=== PATIENT | female | born 1980 | race Asian ===

== ENCOUNTER → 2019-05-23 | Outpatient (CLI) | payer OTHER | LOC: DIA.ED 11:16 | DX: O24.419 Gestational diabetes mellitus in pregnancy, unspecified control (principal); Z3A.23 23 weeks gestation of pregnancy | CPT/HCPCS: G0108 ==

== ENCOUNTER → 2019-06-02 | Outpatient (CLI) | payer OTHER | LOC: DIA.ED 10:20 | DX: O24.419 Gestational diabetes mellitus in pregnancy, unspecified control (principal); Z3A.25 25 weeks gestation of pregnancy | CPT/HCPCS: G0108 ==

== ENCOUNTER → 2019-06-08 | Outpatient (CLI) | payer OTHER | LOC: DIA.ED 08:35 | DX: O24.419 Gestational diabetes mellitus in pregnancy, unspecified control (principal); Z3A.28 28 weeks gestation of pregnancy | CPT/HCPCS: G0108 ==

== ENCOUNTER 2019-07-22 09:24 | Inpatient (IN) | payer OTHER ==
[2019-07-23] VITALS (17 sets, daily range): BP systolic 102–136; BP diastolic 55–99; PULSE 53–86; TEMP 97.8–98.6
--- NOTE | 2019-07-23 07:10 | NUR ---
Pt arrives to unit ambulatory with spouse. Pt oriented to room, changed into gown. EFM explained and placed, pt denies contractions or leaking of fluid, reports good movement. Vitals taken, assessment done, consents signed. IV started in left forearm. Plan of care discussed, pt denies questions at this time.
[2019-07-23] MEDS ORDERED: PRENATAL TABLET PO (07:54)
[2019-07-23] MEDS ORDERED: NATURAL IRON65 MG (07:55)
[2019-07-23] MEDS ORDERED: BASAGLAR K100 UNIT/1 SQ (07:56)
[2019-07-23 08:09] LABS: BASO % 0.4 % (0.0-2.0); EOS # 0.1 (0.0-0.7); EOS % 1.1 % (0-4.0); GRAN # 4.6 (1.4-6.5); GRAN % 57.9 % (42.2-75.2); HEMOGLOBIN 11.3 g/dl (12.5-16.0); LYMPH # 2.7 (1.2-3.4); LYMPH % 34.2 % (20.0-51.0); MEAN CELL VOLUME 83 fl (80.0-100.0); MEAN CORPUSCULAR HEMOGLOBIN 28 pg (27.0-31.0); MEAN CORPUSCULAR HGB CONC 34 g/dl (33.0-37.0); MONO # 0.5 (0.1-0.6); MONO % 6.1 % (1.7-9.3); PLATELET COUNT 209 K/mm3 (130-400); RED BLOOD COUNT 4.04 M/mm3 (4.10-5.30); REDCELL DISTRIBUTION WIDTH-CV 13.2 % (11.5-14.5)
[2019-07-23 08:14] LABS: HEMATOCRIT 33.7 % (37.0-47.0)
[2019-07-23] MEDS ORDERED: PERCOCET 325 MG1 TA2 PO (08:42)
[2019-07-23] MEDS ORDERED: MOTRIN 800800 MG/TAB PO (08:42)
--- NOTE | 2019-07-23 16:45 | NUR ---
Pt up to side of bed, then ambulated with standby assist to bathroom with steady gait. Pt sat on toilet, Mahan removed, pericare provided. Clean pad and panties placed, new gown and socks provided. Pt ambulated under own power back to bed and positioned self for comfort. Pt tolerated well.
[2019-07-24 03:03] VITALS: BP 116/71; PULSE 70; TEMP 98.8
--- NOTE | 2019-07-24 08:15 | NUR ---
Rests in bed, alert. Assessment done, baby at bedside in crib. 0804 Ibuprofen 800 mg given as ordered.
--- NOTE | 2019-07-24 14:15 | NUR ---
Shower taken, dressing off per this nurse. Incision site clean dry and intact.
--- NOTE | 2019-07-24 15:15 | NUR ---
Rests in bed with eyes closed. Resperations even and unlabored.
[2019-07-24 16:00] VITALS: BP 116/68; PULSE 86; TEMP 98.4
--- NOTE | 2019-07-24 16:00 | NUR ---
1605 Rests in bed, alert. Ibuprofen 800 mg given as ordered.
[2019-07-24 19:00] VITALS: BP 106/61; PULSE 66; TEMP 98.6
[2019-07-25 08:00] VITALS: BP 103/62; PULSE 80; TEMP 98.3
--- NOTE | 2019-07-25 09:14 | NUR ---
Initial visit attempt; Visitors present, City Controller left card of congratulations for the of their daughter and information regarding the availability of spriritual care at [facility].
== END 2019-07-25 15:45 | disposition home or self-care (01) | DRG 788 ==
LOC: OB 07-23 06:36
PROVIDERS: ADMIT Obstetrics & Gynecology
PROC: 10D00Z1 Extraction of Products of Conception, Low, Open Approach (ICD-10-PCS; principal; 2019-07-23)
DX: O24.424 Gestational diabetes mellitus in childbirth, insulin controlled (principal); O34.211 Maternal care for low transverse scar from previous cesarean delivery; O62.2 Other uterine inertia; Z3A.38 38 weeks gestation of pregnancy; Z37.0 Single live birth
CPT/HCPCS: J0690; J1885; J2210; J2370; J2405; J2590; J7120

== ENCOUNTER → 2019-08-16 | Outpatient (CLI) | payer SELFPAY ==
[~2019-08-16] MED LIST: BASAGLAR K100 UNIT/1 SQ; MOTRIN 800800 MG/TAB PO; NATURAL IRON65 MG; PERCOCET 325 MG1 TA2 PO; PRENATAL TABLET PO
--- NOTE | 2019-08-16 13:49 | NUR ---
Pt, Antonio Dodson, presents to walk-in clinic with 24 day old baby boy, Garry Christensen, and her spouse Edgard Christensen, for a evaluation. Chief complaints are baby eating "every 1 hour", not sleeping well, and possible low milk supply. Garry was born by repeat c/section on 07/23/2019 and weighed 8#3.9oz (3740 gms). During the hospital stay Gagandeep was both and formula feeding. Pt states she discontiued the formula once her milk came in on day 4. FOB states Garry weighed 7#8oz, which is near 10% loss, at the first doctor appt on 07/27/2019. Garry was seen at Pediatrics yesterday and his weight was reported to be 9#, for a gain of 24 oz in 20 days. At this clinic Garry weighs 8#14oz (4048 gms). Currently they report baby feeding "every 1 hours" from the breast and poor sleeping. They provide Garry 2oz formula 2-3 x/day because he does not get content after frequent feedings. They also reports qs voids and stools. Pt reports feeling milk increase between feedings but not feeling "full" since Garry eats every "hour". After at this visit Garry had a weight gain of 0.8oz (24 ml) from the left breast and 1.8 oz (52 gms) for a total of 2.6oz (76 gms). Milk was noted to leak when Garry pulled off during let down. Based on age and size, would expect Garry to take close to 4oz per feeding, 8 times per day. Pt consents to feeding Gagandeep formula by bottle but he does not act very eager to consume it but manages to get an additional ounce. Impression: Garry is currently having frequent, q1-2 hours feeding, of small amounts. Adequate weight gain is noted. Additionally, after feeding Garry does not really act hungry, but the family is expecting him to sleep after every feeding as in the days. Discussed giving him more interaction and wake time after feedings as he is developing into the next stage of sleep/wake cycles. Plan: Increase volume intake by supplementing about 1 oz after to see if this will keep him smith, longer, and allow Pt's milk volume to accumulate longer between feedings to provided bigger feedings. Stop the supplement if she is able to make this trasition to larger, less frequent feeds. F/U: Return to clinic next week if Garry does not improve his wake/sleep/feed cycles to ensure he continues to gain weight appropriately. Questions invited and answered.
== END ==
LOC: LAC 13:19
DX: Z39.1 Encounter for care and examination of lactating mother (principal); Z71.89 Other specified counseling

== ENCOUNTER → 2022-09-25 | Outpatient (CLI) | payer SELFPAY | LOC: COL.LAB 15:10 | DX: K21.9 Gastro-esophageal reflux disease without esophagitis (principal); A04.8 Other specified bacterial intestinal infections ==

== ENCOUNTER 2022-10-29 09:00 | Day surgery (SDC) | payer SELFPAY ==
[~2022-10-29] VITALS: Ht 160 cm; Wt 59.1 kg
[2022-10-29 09:24] VITALS: BP 117/73; PULSE 78; TEMP 97.1
[2022-10-29] MEDS ORDERED: IMITREX50 MG PO (09:27)
[2022-10-29] MEDS ORDERED: PROTONIX 40MG T40 MG PO (09:27)
[2022-10-29 10:55] VITALS: BP 108/65; PULSE 69; TEMP 97.4
[2022-10-29 11:10] VITALS: BP 104/74; PULSE 73
[2022-10-29 11:25] VITALS: BP 105/84; PULSE 64
--- NOTE | 2022-10-29 12:23 | NUR ---
1055: PATIENT TO BAY 6 PER CART FROM ENDO SUITE. PATIENT AMBULATED FROM CART TO RECLINER X2 ASSIST. REPORT RECEIVED FROM ENDO RN. VS STABLE. BREATHING EVEN AND UNLABORED. PATIENT REQUESTING JUICE BUT REFUSED FOOD AT THIS TIME. PATIENT DENIES ANY NEEDS AT THIS TIME. RESTING IN RECLINER. AT SIDE. CALL LIGHT IN REACH. 1110: DR. DE LA ROSA IN TO SPEAK WITH PATIENT AT THIS TIME. VS REMAIN STABLE. PATIENT TOLERATING JUICE AND REQUESTING WATER AT THIS TIME. DENIES ANY NEEDS AT THIS TIME. PATIENT RESTING IN RECLINER. AT SIDE. CALL LIGHT IN REACH. 1125: VS REMAIN STABLE. PATIENT HAS NO COMPLAINTS. TOLERATING WATER WELL. DISCHARGE EDUCATION COMPLETED AT THIS TIME. PATIENT AND STATED UNDERSTANDING OFF INSTRUCTIONS. DISCHARGE PAPERWORK GIVEN TO PATIENT. IV DC'D AT THIS TIME. PATIENT DENIES ANY ASSISTANCE WITH DRESSING. 1132: PATIENT AMBULATED TO WHEELCHAIR WITH STADY GAIT. PATIENT OFF UNIT VIA WHEELCHAIR. DISCHRGED TO HOME WITH PER PERSONAL VEHICLE.
== END 2022-10-29 11:32 | disposition home or self-care (01) ==
LOC: SDCO 09:00
DX: K29.40 Chronic atrophic gastritis without bleeding (principal); K21.9 Gastro-esophageal reflux disease without esophagitis; Z79.899 Other long term (current) drug therapy; Z86.19 Personal history of other infectious and parasitic diseases
CPT/HCPCS: J2704; J7120